=== PATIENT | female | born 1945 | race Caucasian/White ===

== ENCOUNTER 2019-04-10 12:56 | Outpatient (CLI) | payer OTHER | END 2019-04-10 19:30 | disposition home or self-care (01) | LOC: SMA 12:56 | DX: Z12.31 Encounter for screening mammogram for malignant neoplasm of breast (principal) | CPT/HCPCS: 77067 ==

== ENCOUNTER 2019-05-21 12:56 | Outpatient (CLI) | payer OTHER, MEDICARE | END 2019-05-21 21:03 | disposition home or self-care (01) | LOC: SMA 12:56 | DX: N63.13 Unspecified lump in the right breast, lower outer quadrant (principal); R92.8 Other abnormal and inconclusive findings on diagnostic imaging of breast | CPT/HCPCS: 76642; 77065 ==